=== PATIENT | male | born 1970 | race Asian ===

== ENCOUNTER → 2021-01-05 06:53 | Outpatient (CLI) | payer BC, SELFPAY ==
[2021-01-05 18:26] LABS: SARS-CoV-2 RNA PCR Positive
== END ==
PROVIDERS: PCP Emergency Medicine; Visit Provider Emergency Medicine
DX: Z20.822 Contact with and (suspected) exposure to COVID-19 (principal); R09.89 Other specified symptoms and signs involving the circulatory and respiratory systems
CPT/HCPCS: C9803; U0003; U0005

== ENCOUNTER 2021-01-05 08:45 | Outpatient (CLI) | payer BC, SELFPAY ==
--- NOTE | ~2021-01-05 | XR_ITS ---
XR chest 2V DATE: 01/05/2021 09:05 INDICATION: Cough. Viral infection. TECHNIQUE: PA and lateral views COMPARISON: None FINDINGS: Normal heart size. No hilar or mediastinal enlargement. No pulmonary vascular congestion, p leural effusion or pneumothorax. Subtle patchy infiltrates are noted in the mid and lower lung zones, right greater than left. Mild thoracic dextroscoliosis. IMPRESSION: Mild patchy bilateral infiltrates of the mid and lower lung zones, right greater than lef t Reviewed, dictated and finalized at location A. IMPRESSION: Mild patchy bilateral infiltrates of the mid and lower lung zones, right greater than left
== END 2021-01-05 08:46 | disposition home or self-care (01) ==
LOC: ANHIMG 08:49
PROVIDERS: PCP Emergency Medicine; Visit Provider Emergency Medicine
DX: R05 Cough (principal); M41.9 Scoliosis, unspecified
CPT/HCPCS: 71046; C9803; U0003; U0005

== ENCOUNTER 2021-01-31 15:46 | Outpatient (CLI) | payer BC, SELFPAY ==
--- NOTE | ~2021-01-31 | XR_ITS ---
XR chest 2V DATE: 01/31/2021 16:07 INDICATION: Pneumonia TECHNIQUE: PA and lateral views COMPARISON: 01/05/2021 PA and lateral chest FINDINGS: Interval resolution of previously reported mild patchy bilateral infiltrates. No pulmonary consolidation, pulmonary vascular congestion, pleural effusion, adenopathy or pneumothorax is evident . Findings. Thoracic dextroscoliosis. IMPRESSION: No active disease Reviewed, dictated and finalized at location A. IMPRESSION: No active disease
== END 2021-01-31 15:47 | disposition home or self-care (01) ==
PROVIDERS: PCP Emergency Medicine; Visit Provider Emergency Medicine
DX: J18.9 Pneumonia, unspecified organism (principal)
CPT/HCPCS: 71046

== ENCOUNTER 2021-05-16 01:48 | Day surgery (SDC) | payer BC, SELFPAY ==
[2021-05-03 15:37] VITALS: BMI 21.3
--- NOTE | 2021-05-09 07:20 | PM.HPGS ---
History of Present Illness History of Present Illness Consent: Risks, benefits, and alternatives have been discussed and questions answered. Patient agrees to proceed with procedure. Chief complaint: neoplasm screening Narrative: Cortes is a 50 year old male referred for colon cancer screening Review of Systems Review of Systems: All systems reviewed & are unremarkable except as noted in HPI and below [facility] Social History Social History Smoking packs per day: 0.5 Smoking cigarettes per day: 10.0 Years smoked: 5 Smoking pack-years: 2.50 Smoking status: Former smoker Tobacco type: cigarettes Substance use: never Substance use type: does not use Living arrangements: with family Spiritual care concerns: No Meds Home Medications and Allergies Home Medications Medication Instructions Recorded Confirmed Type sodium,potassium,mag sulfates See Rx Instructions .ROUTE 04/07/21 Rx [Suprep Bowel Prep Kit] .COMPLEX #1 ml Allergies Allergy/AdvReac Type Severity Reaction Status Date / Time No Known Allergies Allergy Verified 05/03/21 15:37 Exam Resp: Auscultation: clear to auscultation bilaterally Cardio: Rate: regular rate Rhythm: regular rhythm GI: GI Palp: Yes Soft to palpation and No Tenderness to palpation present (GI) Assessment and Plan Assessment and plan (1) Colon cancer screening: Code(s): Z12.11 - Encounter for screening for malignant neoplasm of colon Status: Acute Assessment and Plan: Colonoscopy with possible biopsy or polypectomy or cautery or injection of substances.
--- NOTE | 2021-05-09 08:00 | WPDANESEPPF ---
Anes - Initial Pre Proc Eval Procedure: Operation Date: 05/09/21 09:00 Proposed Procedures p Screening Colonoscopy - Benja Multani MD Date/Time: 05/09/21 08:00 Surgeon: Benja Multani MD Pre Op Diagnosis: neoplasm screening Patient Data Age: 50 Gender: M Height: 1.68 m Weight: 60 kg Allergies Allergy/AdvReac Type Severity Reaction Status Date / Time No Known Allergies Allergy Verified 05/03/21 15:37 Home Medications Medication Instructions Recorded Confirmed Type sodium,potassium,mag sulfates See Rx Instructions .ROUTE 04/07/21 Rx [Suprep Bowel Prep Kit] .COMPLEX #1 ml PMFSH Social History Social History Smoking packs per day: 0.5 Smoking cigarettes per day: 10.0 Years smoked: 5 Smoking pack-years: 2.50 Smoking status: Former smoker Tobacco type: cigarettes Substance use: never Substance use type: does not use Living arrangements: with family Spiritual care concerns: No Anes - Eval Final PreProcedure Day of Procedure 05/09/21 08:00 Patient weight: normal Heart: regular rate and rhythm Lungs: clear to auscultation and normal air movement Airway: Mallampati scale class II Neurological: alert and oriented Last oral intake: >/= 8 hours ASA classification: II Emergent: no Anesthetic plan: proceed Anesthesia type and monitoring: general GIVS Informed Consent: The patient's anesthetic plan and its attendant risks and benefits were discussed with the patient/family/POA. Questions were solicited and answers provided to the satisfaction of the patient/family/POA.
--- NOTE | 2021-05-09 08:46 | SUR.PREOP ---
Upon using the [facility] #[id number]- the patient informed me that he had not drank any colon prep. The client service supervisor and I went through the instructions for the Suprep and Magnesium citrate at length. Times and how to mix it and clear liquid status etc. Patients stated she understood and had no further questions. Arrival time and discharge instructions were also discussed.
[2021-05-16 12:32] VITALS: BP 126/85; PULSE 71; RESP 20; TEMP 36.4; O2SAT 97; BMI 19.5
--- NOTE | 2021-05-16 12:48 | WPDANESEPPF ---
Anes - Initial Pre Proc Eval Procedure: Operation Date: 05/16/21 13:30 Proposed Procedures p Screening Colonoscopy - Benja Multani MD Date/Time: 05/16/21 12:48 Surgeon: Benja Multani MD Pre Op Diagnosis: neoplasm screening Patient Data Age: 50 Gender: M Height: 1.68 m Weight: 55 kg Last Vital Signs Temp 36.4 C 05/16/21 12:32 Pulse 71 05/16/21 12:32 Resp 20 05/16/21 12:32 BP 126/85 05/16/21 12:32 Pulse Ox 97 05/16/21 12:32 Allergies Allergy/AdvReac Type Severity Reaction Status Date / Time No Known Allergies Allergy Verified 05/16/21 12:31 Home Medications Medication Instructions Recorded Confirmed Type sodium,potassium,mag sulfates See Rx Instructions .ROUTE 04/07/21 Rx [Suprep Bowel Prep Kit] .COMPLEX #1 ml Patient hx anesthesia problems: none Family hx anesthesia problems: none PMFSH Social History Social History Smoking packs per day: 0.5 Smoking cigarettes per day: 10.0 Years smoked: 5 Smoking pack-years: 2.50 Smoking status: Former smoker Tobacco type: cigarettes Substance use: never Substance use type: does not use Living arrangements: with family Spiritual care concerns: No Anes - Eval Final PreProcedure Day of Procedure 05/16/21 12:48 Patient weight: thin Heart: regular rate and rhythm Lungs: clear to auscultation and normal air movement Airway: Mallampati scale class II Neurological: alert and oriented Last oral intake: >/= 8 hours ASA classification: II Emergent: no Anesthetic plan: proceed Anesthesia type and monitoring: general GIVS and standard monitoring Informed Consent: The patient's anesthetic plan and its attendant risks and benefits were discussed with the patient/family/POA. Questions were solicited and answers provided to the satisfaction of the patient/family/POA.
--- NOTE | 2021-05-16 13:03 | P.HP_ITS ---
History of Present Illness History of Present Illness Consent: Risks, benefits, and alternatives have been discussed and questions answered. Patient agrees to proceed with procedure. Chief complaint: neoplasm screening Narrative: Cortes is a 50 year old male referred for colon cancer screening. The procedure, the risks such as possibility of bleeding were explained in detail through an language interpreter. The patient was given opportunity to ask any questions which he did and which we answered to his satisfaction. Review of Systems Review of Systems: All systems reviewed & are unremarkable except as noted in HPI and below [facility] Social History Social History Smoking packs per day: 0.5 Smoking cigarettes per day: 10.0 Years smoked: 5 Smoking pack-years: 2.50 Smoking status: Former smoker Tobacco type: cigarettes Substance use: never Substance use type: does not use Living arrangements: with family Spiritual care concerns: No Meds Home Medications and Allergies Home Medications Medication Instructions Recorded Confirmed Type sodium,potassium,mag sulfates See Rx Instructions .ROUTE 04/07/21 Rx [Suprep Bowel Prep Kit] .COMPLEX #1 ml Allergies Allergy/AdvReac Type Severity Reaction Status Date / Time No Known Allergies Allergy Verified 05/16/21 12:31 Vital Signs Vital Signs - 24 hr 05/16/21 12:32 Temperature 36.4 C Pulse Rate 71 Respiratory Rate 20 Blood Pressure 126/85 Pulse Oximetry 97 Exam Resp: Auscultation: clear to auscultation bilaterally Cardio: Rate: regular rate Rhythm: regular rhythm GI: GI Palp: Yes Soft to palpation and No Tenderness to palpation present (GI) Assessment and Plan Assessment and plan (1) Colon cancer screening: Code(s): Z12.11 - Encounter for screening for malignant neoplasm of colon Status: Acute Assessment and Plan: Colonoscopy with possible biopsy or polypectomy or cautery or injection of substances.
[2021-05-16] MEDS: LACTATED RINGERS 1,000 ML 150 ML IV CONT (13:51)
[2021-05-16 13:53] VITALS: BP 95/56; PULSE 68; RESP 20; O2SAT 99
[2021-05-16 14:03] VITALS: BP 117/81; PULSE 90; RESP 18; O2SAT 99
[2021-05-16 14:13] VITALS: BP 113/84; PULSE 74; RESP 20; O2SAT 98
--- NOTE | 2021-05-16 14:38 | SUR.PHASEII ---
[employer] translation service used for all pt communication in mandarin, pt and spouse state no questions or concerns
== END 2021-05-16 14:38 | disposition home or self-care (01) ==
PROVIDERS: PCP Emergency Medicine; Visit Provider Internal Medicine Gastroenterology
PROC: 0DJD8ZZ Inspection of Lower Intestinal Tract, Via Natural or Artificial Opening Endoscopic (ICD-10-PCS; CPT 45378; principal; 2021-05-16 13:30)
DX: Z12.11 Encounter for screening for malignant neoplasm of colon (principal); Z87.891 Personal history of nicotine dependence
CPT/HCPCS: 45378; J2704; J7120